=== PATIENT | female | born 1995 | race African-American/Black ===

== ENCOUNTER 2021-02-18 07:11 | Emergency (ER) | payer MEDICAID ==
[~2021-02-18] VITALS: Ht 175.3 cm; Wt 86.0 kg
[2021-02-18] MEDS ORDERED: ACETAMINOPHEN 325MG TABLET PO ONE (07:45)
[2021-02-18 07:46] VITALS: BP 154/80
== END 2021-02-18 08:00 | disposition left against medical advice (07) ==
LOC: ER 07:59
DX: R51.9 Headache, unspecified (principal); F15.10 Other stimulant abuse, uncomplicated
CPT/HCPCS: 99282